=== PATIENT | female | born 1930 | race Caucasian/White ===

== ENCOUNTER 2017-06-06 14:53 | Emergency (ER) | payer OTHER ==
[~2017-06-06] VITALS: Ht 152.4 cm; Wt 59.9 kg
[2017-06-06 16:05] LABS: HEMATOCRIT 35.6 % (36.0-46.0); HEMOGLOBIN 11.9 G/DL (11.9-15.5); MCH 29.3 PG (29.0-34.0); MCHC 33.4 G/DL (30.0-36.0); MCV 87.7 FL (83-99); PLATELET COUNT 300 K/uL (156-360); RBC DIS.WIDTH-CV 12.9 % (11.8-14.6); RBC DIS.WIDTH-SD 41.1 % (39-53); RED BLOOD COUNT 4.06 M/uL (3.80-5.20); WHITE BLOOD COUNT 7.8 K/uL (4.1-10.2)
[2017-06-06 16:14] LABS: CHLORIDE 102 mEq/L (99-109); POTASSIUM 4.4 mEq/L (3.7-5.4); SODIUM 135 mEq/L (136-147)
[2017-06-06 16:16] LABS: GLUCOSE 124 mg/dL (70-99)
[2017-06-06 16:17] LABS: TOTAL PROTEIN 7.4 g/dL (6.4-8.3)
[2017-06-06 16:18] LABS: TOTAL BILIRUBIN 0.4 mg/dL (0.0-1.0)
[2017-06-06 16:20] LABS: ALKALINE PHOSPHATASE 66 IU/L (3-129); CREATININE 1.1 mg/dL (0.6-1.3)
[2017-06-06 16:21] LABS: UREA NITROGEN (BUN) 18 mg/dL (9-23)
[2017-06-06 16:22] LABS: AST (GOT) 17 IU/L (2-34)
[2017-06-06 16:23] LABS: ALT (GPT) 11 IU/L (3-49); LIPASE 15 U/L (1.0-51.0)
[2017-06-06 16:24] LABS: GFR ESTIMATE (CALCULATED) 50 mL/min/
[2017-06-06 16:59] LABS: APPEARANCE CLEAR ((CLEAR)); BILIRUBIN NEGATIVE; BLOOD SMALL; COLOR STRAW ((YELLOW)); GLUCOSE (STRIP) NEGATIVE; KETONES NEGATIVE; LEUKOCYTES NEGATIVE; NITRITE NEGATIVE; PROTEIN (STRIP) 30; SPECIFIC GRAVITY 1.012 (1.000-1.030); UROBILINOGEN 0.2 MG/DL (0.2-1.0)
[2017-06-06 17:04] LABS: BACTERIA NONE SEEN /HPF; EPITHELIAL CELLS NONE SEEN /HPF; HYALINE CASTS 0-5 /LPF; MUCUS TRACE /LPF; RED BLOOD CELLS 0-5 /HPF (0-5); UCUL ADDED? NO; WHITE BLOOD CELLS 0-5 /HPF (0-5)
[2017-06-06 17:42] VITALS: BP 190/80
== END 2017-06-06 17:43 | disposition home or self-care (01) ==
LOC: EME 14:53
PROVIDERS: Physician Assistant
DX: R53.1 Weakness (principal); E86.0 Dehydration; I10 Essential (primary) hypertension; F02.80 Dementia in other diseases classified elsewhere, unspecified severity, without behavioral disturbance, psychotic disturbance, mood disturbance, and anxiety; G30.9 Alzheimer's disease, unspecified; D64.9 Anemia, unspecified
CPT/HCPCS: 80053; 81003; 83690; 85027; 93005; 99281; 99284; J7030

== ENCOUNTER 2017-11-03 07:46 | Inpatient (IN) | payer OTHER ==
[~2017-11-03] VITALS: Ht 157.5 cm; Wt 58.9 kg
[2017-11-03 08:46] LABS: BASOPHIL COUNT 0.1 K/uL (0-0.1); EOSINOPHIL (%) 2.6 % (0-5); EOSINOPHIL COUNT 0.2 K/uL (0-0.3); HEMOGLOBIN 11.3 G/DL (11.9-15.5); IMMATURE GRANULOCYTE (%) 0.3 % (0.0-0.7); LYMPHOCYTE (%) 19.9 % (15-42); LYMPHOCYTE COUNT 1.4 K/uL (1.0-2.8); MCH 30.2 PG (29.0-34.0); MCHC 34.2 G/DL (30.0-36.0); MCV 88.2 FL (83-99); MONOCYTE (%) 7.9 % (3-12); MONOCYTE COUNT 0.5 K/uL (0-0.8); NEUTROPHIL (%) 68.3 % (45-76); NEUTROPHIL COUNT 4.7 K/uL (1.8-6.4); PLATELET COUNT 176 K/uL (156-360); RBC DIS.WIDTH-CV 13.4 % (11.8-14.6); RBC DIS.WIDTH-SD 43.5 % (39-53); RED BLOOD COUNT 3.74 M/uL (3.80-5.20); WHITE BLOOD COUNT 6.9 K/uL (4.1-10.2)
[2017-11-03 08:55] LABS: INTER. NORMALIZED RATIO 1.2
[2017-11-03 08:58] LABS: PTT 29.7 SEC (25-37)
[2017-11-03 09:20] LABS: TROP-I INTERPRETATION NEGATIVE; TROPONIN-I < 0.01 ng/mL (0.0-0.30)
[2017-11-03 09:29] LABS: AMYLASE 23 IU/L (1-118); CHLORIDE 104 MEQ/L (99-109); CREATININE 1.1 MG/DL (0.6-1.3); GFR ESTIMATE (CALCULATED) 50 mL/min/; GLUCOSE 109 mg/dL (70-99); LIPASE 6 U/L (1.0-51.0); POTASSIUM 4.5 MEQ/L (3.7-5.4); SERUM ETHYL ALCOHOL < 10 mg/dL; SODIUM 140 MEQ/L (136-147); UREA NITROGEN (BUN) 19 mg/dL (9-23)
[2017-11-03 17:01] VITALS: BP 206/102
[2017-11-03 19:24] VITALS: BP 163/77
[2017-11-03] MEDS ORDERED: ANTI-DANDRUFF251 ML TP (19:37)
[2017-11-03] MEDS ORDERED: ATENOLOL50 MG PO (19:39)
[2017-11-03] MEDS ORDERED: BUSPAR10 MG PO (19:40)
[2017-11-03] MEDS ORDERED: CETIRIZINE HCL10 M2 PO (19:41)
[2017-11-03] MEDS ORDERED: MEMANTINE HCL E28 MG PO (19:42)
[2017-11-03] MEDS ORDERED: REMERON15 M2 PO (19:43)
[2017-11-03] MEDS ORDERED: MAPAP PO (19:44)
[2017-11-03 23:55] VITALS: BP 173/75
[2017-11-04 02:50] LABS: BASOPHIL COUNT 0.1 K/uL (0-0.1); EOSINOPHIL COUNT 0.2 K/uL (0-0.3); HEMOGLOBIN 10.2 G/DL (11.9-15.5); IMMATURE GRANULOCYTE (%) 0.3 % (0.0-0.7); LYMPHOCYTE (%) 27.4 % (15-42); LYMPHOCYTE COUNT 1.9 K/uL (1.0-2.8); MCH 29.6 PG (29.0-34.0); MONOCYTE (%) 7.7 % (3-12); MONOCYTE COUNT 0.5 K/uL (0-0.8); NEUTROPHIL (%) 60.6 % (45-76); NEUTROPHIL COUNT 4.1 K/uL (1.8-6.4); PLATELET COUNT 183 K/uL (156-360); RBC DIS.WIDTH-CV 13.2 % (11.8-14.6); RBC DIS.WIDTH-SD 41.5 % (39-53); RED BLOOD COUNT 3.45 M/uL (3.80-5.20); WHITE BLOOD COUNT 6.7 K/uL (4.1-10.2)
[2017-11-04 03:33] VITALS: BP 131/60
[2017-11-04 03:33] LABS: CHLORIDE 107 mEq/L (99-109); SODIUM 137 mEq/L (136-147)
[2017-11-04 03:35] LABS: GLUCOSE 93 mg/dL (70-99)
[2017-11-04 03:39] LABS: GFR ESTIMATE (CALCULATED) 56 mL/min/; UREA NITROGEN (BUN) 18 mg/dL (9-23)
[2017-11-04 08:13] VITALS: BP 152/76
[2017-11-04 11:30] VITALS: BP 182/82
[2017-11-04 16:12] VITALS: BP 192/98
[2017-11-04 20:00] VITALS: BP 178/80
[2017-11-04 23:47] VITALS: BP 175/88
[2017-11-05] VITALS (9 sets, daily range): BP systolic 161–206; BP diastolic 76–96
[2017-11-05 05:52] LABS: BASOPHIL (%) 0.8 % (0-1); BASOPHIL COUNT 0.1 K/uL (0-0.1); EOSINOPHIL (%) 4.9 % (0-5); EOSINOPHIL COUNT 0.3 K/uL (0-0.3); HEMOGLOBIN 10.2 G/DL (11.9-15.5); IMMATURE GRANULOCYTE (%) 0.2 % (0.0-0.7); LYMPHOCYTE COUNT 1.8 K/uL (1.0-2.8); MCH 29.1 PG (29.0-34.0); MCHC 32.9 G/DL (30.0-36.0); MCV 88.3 FL (83-99); MONOCYTE (%) 8.6 % (3-12); MONOCYTE COUNT 0.5 K/uL (0-0.8); NEUTROPHIL (%) 55.5 % (45-76); NEUTROPHIL COUNT 3.4 K/uL (1.8-6.4); PLATELET COUNT 184 K/uL (156-360); RBC DIS.WIDTH-CV 13.2 % (11.8-14.6); RED BLOOD COUNT 3.51 M/uL (3.80-5.20); WHITE BLOOD COUNT 6.1 K/uL (4.1-10.2)
[2017-11-05 05:53] LABS: INTER. NORMALIZED RATIO 1.2
[2017-11-05 06:17] LABS: CHLORIDE 106 MEQ/L (99-109); GFR ESTIMATE (CALCULATED) 56 mL/min/; GLUCOSE 97 mg/dL (70-99); HDL CHOLESTEROL 34 MG/DL (Desirable>=50); LDL CHOLESTEROL 95 mg/dL (Desirable<100); NON-HDL CHOLESTEROL 112 mg/dL (Desirable<160); SODIUM 139 MEQ/L (136-147); TOTAL CHOLESTEROL 146 mg/dL (Desirable<200); TRIGLYCERIDES 83 MG/DL (Normal: <150); UREA NITROGEN (BUN) 14 mg/dL (9-23)
[2017-11-06 03:27] VITALS: BP 180/86
[2017-11-06 07:05] LABS: INTER. NORMALIZED RATIO 1.2
[2017-11-06 07:07] LABS: PTT 57.1 SEC (25-37)
[2017-11-06 07:31] VITALS: BP 178/82
[2017-11-06 07:34] LABS: HEMATOCRIT 29.8 % (36.0-46.0); MCH 29.4 PG (29.0-34.0); MCHC 33.6 G/DL (30.0-36.0); MCV 87.6 FL (83-99); PLATELET COUNT 201 K/uL (156-360); RBC DIS.WIDTH-CV 13.2 % (11.8-14.6); RBC DIS.WIDTH-SD 42.6 % (39-53); WHITE BLOOD COUNT 7.4 K/uL (4.1-10.2)
[2017-11-06 12:30] VITALS: BP 173/74
[2017-11-06 16:11] VITALS: BP 135/88
[2017-11-06 20:25] VITALS: BP 180/88
[2017-11-07] VITALS (7 sets, daily range): BP systolic 158–190; BP diastolic 82–92
[2017-11-07 05:54] LABS: HEMATOCRIT 30.7 % (36.0-46.0); HEMOGLOBIN 10.1 G/DL (11.9-15.5); MCH 28.8 PG (29.0-34.0); MCHC 32.9 G/DL (30.0-36.0); MCV 87.5 FL (83-99); PLATELET COUNT 213 K/uL (156-360); RBC DIS.WIDTH-CV 13.2 % (11.8-14.6); RBC DIS.WIDTH-SD 42.5 % (39-53); RED BLOOD COUNT 3.51 M/uL (3.80-5.20); WHITE BLOOD COUNT 5.9 K/uL (4.1-10.2)
[2017-11-07 06:08] LABS: INTER. NORMALIZED RATIO 1.2
[2017-11-07 06:11] LABS: PTT 60.5 SEC (25-37)
[2017-11-08 00:03] VITALS: BP 164/78
[2017-11-08 06:03] LABS: INTER. NORMALIZED RATIO 1.5
[2017-11-08 06:06] LABS: PTT 78.9 SEC (25-37)
[2017-11-08 06:33] LABS: CHLORIDE 106 MEQ/L (99-109); CREATININE 0.9 MG/DL (0.6-1.3); GFR ESTIMATE (CALCULATED) > 59 mL/min/; GLUCOSE 116 mg/dL (70-99); POTASSIUM 3.4 MEQ/L (3.7-5.4); SODIUM 142 MEQ/L (136-147); UREA NITROGEN (BUN) 9 mg/dL (9-23)
[2017-11-08 07:09] VITALS: BP 139/77
[2017-11-08 15:05] VITALS: BP 161/77
[2017-11-08 20:43] VITALS: BP 195/93
[2017-11-09 00:42] VITALS: BP 164/77
[2017-11-09 04:04] VITALS: BP 148/70
[2017-11-09 06:21] LABS: INTER. NORMALIZED RATIO 2.4
[2017-11-09 07:07] VITALS: BP 144/74
[2017-11-09 15:08] VITALS: BP 133/73
[2017-11-09 23:30] VITALS: BP 173/84
[2017-11-10 04:05] VITALS: BP 168/71
[2017-11-10 06:06] LABS: INTER. NORMALIZED RATIO 2.8
[2017-11-10 06:08] LABS: PTT 40.4 SEC (25-37)
[2017-11-10 06:37] LABS: CHLORIDE 104 MEQ/L (99-109); CREATININE 0.9 MG/DL (0.6-1.3); GFR ESTIMATE (CALCULATED) > 59 mL/min/; GLUCOSE 103 mg/dL (70-99); POTASSIUM 3.6 MEQ/L (3.7-5.4); SODIUM 140 MEQ/L (136-147); UREA NITROGEN (BUN) 11 mg/dL (9-23)
[2017-11-10 07:34] VITALS: BP 170/84
[2017-11-10 08:39] LABS: HEMATOCRIT 34.6 % (36.0-46.0); HEMOGLOBIN 11.4 G/DL (11.9-15.5); MCHC 32.9 G/DL (30.0-36.0); RBC DIS.WIDTH-CV 13.5 % (11.8-14.6); RBC DIS.WIDTH-SD 43.6 % (39-53); RED BLOOD COUNT 3.93 M/uL (3.80-5.20); WHITE BLOOD COUNT 5.6 K/uL (4.1-10.2)
[2017-11-10 08:43] LABS: PLATELET COUNT 280 K/uL (156-360)
[2017-11-10 12:24] VITALS: BP 135/75
[2017-11-10 15:29] VITALS: BP 144/76
[2017-11-10] MEDS ORDERED: LIPITOR20 MG PO (15:42)
[2017-11-10] MEDS ORDERED: AMLODIPINE BESY10 MG PO (15:42)
[2017-11-10] MEDS ORDERED: ADULT ASPIRIN81 MG PO (15:44)
[2017-11-10] MEDS ORDERED: COUMADIN1 MG PO (16:48)
== END 2017-11-10 17:54 | DRG 64 ==
LOC: EME → EDBD 07:46 → EME 07:46 → 5SOUTH 13:10 → EDOF 13:10 → ENRESERV 13:27 → 5SOUTH 16:38
PROVIDERS: Emergency Medicine; Hospitalist; Internal Medicine; Internal Medicine Pulmonary Disease
DX: I63.9 Cerebral infarction, unspecified (principal); I82.411 Acute embolism and thrombosis of right femoral vein; I26.99 Other pulmonary embolism without acute cor pulmonale; G30.9 Alzheimer's disease, unspecified; F02.80 Dementia in other diseases classified elsewhere, unspecified severity, without behavioral disturbance, psychotic disturbance, mood disturbance, and anxiety; I10 Essential (primary) hypertension; G81.94 Hemiplegia, unspecified affecting left nondominant side; F41.9 Anxiety disorder, unspecified; R29.810 Facial weakness; I82.812 Embolism and thrombosis of superficial veins of left lower extremity; J90 Pleural effusion, not elsewhere classified
CPT/HCPCS: 70496; 70498; 70551; 71045; 71275; 74230; 80048; 80061; 81003; 82150; 82948; 83036; 83690; 84484; 85025; 85027; 85610; 85730; 86850; 86900; 86901; 92523 GN; 92611 GN; 93306; 93970; 94799; 97530 GP; 99281; 99285; G0480; J2060; J7030